=== PATIENT | male | born 1955 | race Caucasian/White ===

== ENCOUNTER 2018-09-05 18:39 | Inpatient (IN) | payer OTHER ==
[2018-09-05 19:28] LABS: ADD MAN DIFF? NO
[2018-09-05 19:29] LABS: BASOPHILS % 0.2 % (0.0-2.0); EOSINOPHILS # 0.2 10^3/ul (0.0-0.5); EOSINOPHILS % 2.4 % (0.0-7.0); HEMATOCRIT 37.3 % (42.0-52.0); HEMOGLOBIN 12.8 g/dl (14.0-18.0); LYMPHOCYTES # 1.9 10^3/ul (0.8-2.9); MEAN CORPUSCULAR HGB CONC 34.3 g/dl (32.0-37.0); MEAN CORPUSCULAR VOLUME 84.6 fl (82.0-101.0); MEAN PLATELET VOLUME 9.8 fl (7.4-10.4); MONOCYTE # 0.6 10^3/ul (0.3-0.9); MONOCYTES % 7.7 % (0.0-11.0); NEUTROPHIL # 5.5 10^3/ul (1.6-7.5); NEUTROPHILS % 66.5 % (39.0-77.0); PLATELET COUNT 392 10^3/UL (140-415); RED BLOOD COUNT 4.41 10^6/ul (4.70-6.10); RED CELL DISTRIBUTION WIDTH 12.6 % (11.5-14.5)
[2018-09-05 19:29] LABS: WHITE BLOOD COUNT 8.3 10^3/ul (4.8-10.8)
[2018-09-05 19:42] LABS: ADD UMIC YES; UR ASCORBIC ACID NEGATIVE (NEGATIVE); UR BILIRUBIN (Dip) NEGATIVE (NEGATIVE); UR BLOOD (Dip) 1+ mg/dL (NEGATIVE); UR CLARITY CLEAR (CLEAR); UR COLOR YELLOW (YELLOW); UR GLUCOSE (Dip) NEGATIVE (NEGATIVE); UR KETONES (Dip) NEGATIVE (NEGATIVE); UR LEUKOCYTE ESTERASE (Dip) NEGATIVE Leu/ul (NEGATIVE); UR MUCUS FEW /HPF (NONE SEEN); UR NITRITE (Dip) NEGATIVE (NEGATIVE); UR RBC 0 /HPF (0-5); UR SPECIFIC GRAVITY (Dip) 1.021 (1.003-1.030); UR TOTAL PROTEIN (Dip) NEGATIVE (NEGATIVE); UR UROBILINOGEN (Dip) NEGATIVE (NEGATIVE); UR WBC 1 /HPF (0-5)
[2018-09-05 19:50] LABS: ALANINE AMINOTRANSFERASE 26 IU/L (13-69); ALBUMIN 4.3 g/dl (3.3-4.9); ALBUMIN/GLOBULIN RATIO 1.43; ALKALINE PHOSPHATASE 120 IU/L (42-121); ANION GAP 13 (5-13); ASPARTATE AMINO TRANSFERASE 25 IU/L (15-46); BILIRUBIN,INDIRECT 0.2 mg/dl (0-1.1); BILIRUBIN,TOTAL 0.2 mg/dl (0.2-1.3); BLOOD UREA NITROGEN 16 mg/dl (7-20); CALCIUM 9.3 mg/dl (8.4-10.2); CARBON DIOXIDE 23 mmol/L (21-31); CHLORIDE 106 mmol/L (97-110); CREATININE 0.82 mg/dl (0.61-1.24); Estimated GFR > 60 mL/min (>60); GLUCOSE 133 mg/dl (70-220); POTASSIUM 3.9 mmol/L (3.5-5.1); SODIUM 142 mmol/L (135-144); TOTAL PROTEIN 7.3 g/dl (6.1-8.1)
[2018-09-05 20:01] LABS: TROPONIN-I 0.019 ng/ml (0.000-0.120)
[2018-09-05] MEDS: BENAZEPRIL 10 MG TAB PO (20:32)
[2018-09-05 20:55] LABS: INR 0.98; PROTIME 13.1 Sec (11.9-14.9)
[2018-09-05] MEDS ORDERED: IPRATROPIUM (NEB) 0.5 MG/2.5 ML AMP (21:50)
[2018-09-05] MEDS ORDERED: ALBUTEROL 0.5% (NEB) 2.5 MG/0.5 ML AMP (21:50)
[2018-09-05] MEDS: AZITHROMYCIN 250 MG TAB PO (22:12)
[2018-09-05] MEDS: ALBUTEROL 0.083% (NEB) 2.5 MG/3 ML AMP NEB ×2 (22:16→22:29)
[2018-09-05] MEDS: IPRATROPIUM (NEB) 0.5 MG/2.5 ML AMP NEB ×2 (22:16→22:29)
[2018-09-05] MEDS: ACETAMINOPHEN 500 MG TAB PO (22:16)
[2018-09-05] MEDS: DEXAMETHASONE (1 MG/ML PO SYG) PO (22:41)
[2018-09-05] MEDS: CEFTRIAXONE 1 GM/50 ML (PMX) 50 ML IVPB (22:52)
[2018-09-05] MEDS ORDERED: ONDANSETRON 4 MG INJ IV (23:00)
[2018-09-05] MEDS ORDERED: NACL 0.9% 3 ML SYG IV (23:00)
[2018-09-06] MEDS: LOSARTAN 50 MG TAB PO (01:36)
[2018-09-06] MEDS: METOPROLOL 25 MG TAB PO ×3 (01:36→20:18)
[2018-09-06] MEDS: ALBUTEROL/IPRATROPIUM (NEB) 3 ML AMP HHN ×6 (01:58→20:48)
[2018-09-06] MEDS: hydrALAzine 20 MG INJ IV (03:35)
[2018-09-06 05:32] LABS: ADD MAN DIFF? NO
[2018-09-06 05:51] LABS: WHITE BLOOD COUNT 8.8 10^3/ul (4.8-10.8)
[2018-09-06 05:51] LABS: ABNORMAL IP MESSAGE 1; BASOPHILS % 0.1 % (0.0-2.0); HEMATOCRIT 37.9 % (42.0-52.0); HEMOGLOBIN 12.7 g/dl (14.0-18.0); LYMPHOCYTES # 0.5 10^3/ul (0.8-2.9); LYMPHOCYTES % 5.2 % (15.0-51.0); MEAN CORPUSCULAR HEMOGLOBIN 28.7 pg (29.0-33.0); MEAN CORPUSCULAR HGB CONC 33.5 g/dl (32.0-37.0); MEAN CORPUSCULAR VOLUME 85.7 fl (82.0-101.0); MEAN PLATELET VOLUME 10.4 fl (7.4-10.4); MONOCYTE # 0.1 10^3/ul (0.3-0.9); NEUTROPHIL # 8.2 10^3/ul (1.6-7.5); NEUTROPHILS % 93.4 % (39.0-77.0); PLATELET COUNT 402 10^3/UL (140-415); POSITIVE DIFF @See below; RED BLOOD COUNT 4.42 10^6/ul (4.70-6.10); RED CELL DISTRIBUTION WIDTH 12.6 % (11.5-14.5)
[2018-09-06 06:56] LABS: ALANINE AMINOTRANSFERASE 29 IU/L (13-69); ALBUMIN 4.1 g/dl (3.3-4.9); ALBUMIN/GLOBULIN RATIO 1.51; ALKALINE PHOSPHATASE 121 IU/L (42-121); ANION GAP 12 (5-13); ASPARTATE AMINO TRANSFERASE 22 IU/L (15-46); BILIRUBIN,INDIRECT 0.2 mg/dl (0-1.1); BILIRUBIN,TOTAL 0.2 mg/dl (0.2-1.3); BLOOD UREA NITROGEN 15 mg/dl (7-20); CALCIUM 9.2 mg/dl (8.4-10.2); CARBON DIOXIDE 23 mmol/L (21-31); CHLORIDE 104 mmol/L (97-110); CHOL/HDL RATIO 8.1 RATIO; CHOLESTEROL 278 mg/dl (100-200); CREATININE 0.79 mg/dl (0.61-1.24); Estimated GFR > 60 mL/min (>60); GLUCOSE 269 mg/dl (70-220); HDL CHOLESTEROL 34 mg/dl (30-78); LDL CHOLESTEROL,CALCULATED 220 mg/dl; MAGNESIUM 1.7 mg/dl (1.7-2.5); SODIUM 139 mmol/L (135-144); TOTAL PROTEIN 6.8 g/dl (6.1-8.1); TRIGLYCERIDES 119 mg/dl (0-149)
[2018-09-06 07:06] LABS: THYROID STIMULATING HORMONE 0.737 MIU/L (0.465-4.680)
[2018-09-06 07:53] LABS: HEMOGLOBIN A1C 7.3 % (0-5.9)
[2018-09-06] MEDS: ACETAMINOPHEN 325 MG TAB PO (10:14)
[2018-09-07] MEDS: ALBUTEROL/IPRATROPIUM (NEB) 3 ML AMP HHN ×3 (00:41→08:35)
[2018-09-07] MEDS: METOPROLOL 25 MG TAB PO ×2 (08:43→21:13)
[2018-09-07] MEDS: LOSARTAN 50 MG TAB PO (08:44)
[2018-09-07] MEDS: ACETAMINOPHEN 325 MG TAB PO (08:49)
[2018-09-07] MEDS: PIPER-TAZO 3.375 GM IV (PMX) 100 ML IVPB ×3 (09:52→22:09)
[2018-09-07] MEDS: GUAIFENESIN/DM 5ML CUP PO ×3 (10:11→22:54)
[2018-09-07] MEDS ORDERED: ALBUTEROL/IPRATROPIUM (NEB) 3 ML AMP HHN (10:30)
[2018-09-07] MEDS: BUDESONIDE (NEB) 0.25 MG/2 ML AMP HHN ×2 (10:30→20:00)
[2018-09-07] MEDS ORDERED: DEXTROSE 50% 50 ML SYRINGE IV ×2 (11:00)
[2018-09-07] MEDS ORDERED: GLUCOSE GEL 15 GRAM TUBE PO ×2 (11:00)
[2018-09-07] MEDS ORDERED: GLUCAGON 1 MG INJ IM (11:00)
[2018-09-07] MEDS ORDERED: GLUCOSE GEL 15 GRAM TUBE BUCCAL (11:00)
[2018-09-07] MEDS: ASPIRIN (EC) 81 MG TAB PO (11:27)
[2018-09-07] MEDS: AMLODIPINE 10 MG TAB PO (11:27)
[2018-09-07] MEDS: HYDROCHLOROTHIAZIDE 25 MG TAB PO (11:28)
[2018-09-07] MEDS: FAMOTIDINE 20 MG INJ IV ×2 (11:28→21:13)
[2018-09-07] MEDS: ARFORMOTEROL TARTRATE 15MCG/2 ML AMP NEB ×2 (11:30→23:30)
[2018-09-07] MEDS: INSULIN ASPART [NOVOLOG] 3 ML PEN SC ×3 (12:04→21:00)
[2018-09-07] MEDS: LORATADINE 10 MG TAB PO (21:13)
[2018-09-08] MEDS: GUAIFENESIN/DM 5ML CUP PO ×2 (06:07→10:04)
[2018-09-08] MEDS: PANTOPRAZOLE (EC) 40 MG TAB PO (06:07)
[2018-09-08] MEDS: PIPER-TAZO 3.375 GM IV (PMX) 100 ML IVPB ×2 (06:07→13:37)
[2018-09-08 06:41] LABS: ADD MAN DIFF? NO
[2018-09-08 06:47] LABS: BASOPHIL # 0.1 10^3/ul (0.0-0.1); BASOPHILS % 0.7 % (0.0-2.0); EOSINOPHILS # 0.4 10^3/ul (0.0-0.5); EOSINOPHILS % 5.2 % (0.0-7.0); HEMATOCRIT 41.5 % (42.0-52.0); LYMPHOCYTES # 2.6 10^3/ul (0.8-2.9); LYMPHOCYTES % 37.8 % (15.0-51.0); MEAN CORPUSCULAR HEMOGLOBIN 29.4 pg (29.0-33.0); MEAN CORPUSCULAR HGB CONC 33.7 g/dl (32.0-37.0); MEAN CORPUSCULAR VOLUME 87.2 fl (82.0-101.0); MEAN PLATELET VOLUME 10.2 fl (7.4-10.4); MONOCYTE # 0.6 10^3/ul (0.3-0.9); MONOCYTES % 8.8 % (0.0-11.0); NEUTROPHIL # 3.3 10^3/ul (1.6-7.5); NEUTROPHILS % 47.2 % (39.0-77.0); PLATELET COUNT 436 10^3/UL (140-415); RED BLOOD COUNT 4.76 10^6/ul (4.70-6.10); RED CELL DISTRIBUTION WIDTH 13.2 % (11.5-14.5)
[2018-09-08 06:47] LABS: WHITE BLOOD COUNT 6.9 10^3/ul (4.8-10.8)
[2018-09-08 07:25] LABS: ANION GAP 13 (5-13); BLOOD UREA NITROGEN 24 mg/dl (7-20); CALCIUM 9.5 mg/dl (8.4-10.2); CARBON DIOXIDE 28 mmol/L (21-31); CHLORIDE 100 mmol/L (97-110); CREATININE 0.96 mg/dl (0.61-1.24); Estimated GFR > 60 mL/min (>60); GLUCOSE 140 mg/dl (70-220); POTASSIUM 4.2 mmol/L (3.5-5.1); SODIUM 141 mmol/L (135-144)
[2018-09-08] MEDS: INSULIN ASPART [NOVOLOG] 3 ML PEN SC ×2 (08:06→12:16)
[2018-09-08] MEDS: BUDESONIDE (NEB) 0.25 MG/2 ML AMP HHN (08:50)
[2018-09-08] MEDS: LORATADINE 10 MG TAB PO (09:09)
[2018-09-08] MEDS: ASPIRIN (EC) 81 MG TAB PO (09:09)
[2018-09-08] MEDS: METOPROLOL 25 MG TAB PO (09:10)
[2018-09-08] MEDS: HYDROCHLOROTHIAZIDE 25 MG TAB PO (09:10)
[2018-09-08] MEDS: AMLODIPINE 10 MG TAB PO (09:10)
[2018-09-08] MEDS: INFLUENZA VIRUS VACCINE 0.5 ML (DISPENSING) IM* (13:40)
[2018-09-09] MEDS ORDERED: INFLUENZA VIRUS VACCINE 0.5 ML (DISPENSING) IM* (12:00)
== END 2018-09-08 16:57 | disposition home or self-care (01) | DRG 195 ==
LOC: PP2 22:48 → E/R 18:39
DX: J18.9 Pneumonia, unspecified organism (principal); J45.909 Unspecified asthma, uncomplicated; R05 Cough; I25.10 Atherosclerotic heart disease of native coronary artery without angina pectoris; E11.9 Type 2 diabetes mellitus without complications; E66.9 Obesity, unspecified; Z68.33 Body mass index [BMI] 33.0-33.9, adult; I10 Essential (primary) hypertension; I16.0 Hypertensive urgency
CPT/HCPCS: 36415; 71045; 71250; 80048; 80053; 80061; 81001; 82962; 83036; 83735; 84443; 84484; 85025; 85610; 90686; 93005; 94640; 94664; 99285-25; G0378